=== PATIENT | female | born 1960 | race Caucasian/White ===

== ENCOUNTER 2017-05-25 14:28 | Emergency (ER) | payer OTHER ==
[~2017-05-25] VITALS: Ht 160 cm; Wt 72.7 kg
[2017-05-25 15:44] VITALS: BP 131/97
[2017-05-25] MEDS ORDERED: IBUPROFEN 600 MG TABLET PO ONE (16:30)
== END 2017-05-25 17:29 | disposition home or self-care (01) ==
LOC: EMS 14:29
DX: S60.221A Contusion of right hand, initial encounter (principal); X58.XXXA Exposure to other specified factors, initial encounter; Y93.89 Activity, other specified; Y92.89 Other specified places as the place of occurrence of the external cause; Y99.8 Other external cause status
CPT/HCPCS: 99282